=== PATIENT | female | born 1985 | race Hispanic/Latino ===

== ENCOUNTER 2021-10-22 13:00 | Observation (INO) | payer BC ==
[~2021-10-22] VITALS: Ht 162.6 cm; Wt 63.2 kg
[2021-10-26 10:10] LABS: BASOPHILS % (AUTO) 0.4 % (0.0-5.0); EOSINOPHILS % (AUTO) 0.4 % (0.0-8.0); HEMATOCRIT 43.2 % (36-48); LYMPHOCYTES % (AUTO) 18.3 % (21.0-51.0); MEAN CORPUSCULAR HEMOGLOBIN 31.1 pg (27.0-33.0); MEAN CORPUSCULAR HGB CONC 33.3 g/dL (32.0-36.0); MEAN CORPUSCULAR VOLUME 93.3 fL (79-99); MONOCYTES % (AUTO) 4.5 % (3.0-13.0); NEUTROPHILS % (AUTO) 75.9 % (40.0-77.0); PLATELET COUNT (AUTO) 181 K/uL (130-400); RED BLOOD CELL COUNT(AUTO) 4.63 MIL/uL (4.00-5.50); RED CELL DISTRIBUTION WIDTH 12.3 % (11.0-15.5); WHITE BLOOD COUNT (AUTO) 8.2 K/uL (4.8-10.8)
[2021-10-26] MEDS ORDERED: CEFAZOLIN SODIUM 1 GM VIAL IVP SCH (12:00)
[2021-10-26] MEDS ORDERED: GABA-529 PO (14:18)
[2021-10-26] MEDS ORDERED: GABA300C PO (14:18)
[2021-10-26] MEDS ORDERED: MEDR150V IM (14:19)
[2021-10-28] VITALS (21 sets, daily range): BP systolic 106–159; BP diastolic 53–83
[2021-10-28] MEDS ORDERED: SUCCINYLCHOLINE CHLORIDE 20 MG/ML 10 ML VIAL ONE (09:46)
[2021-10-28] MEDS ORDERED: LIDOCAINE PF 100MG/5ML (2%) SYRINGE 5ML ONE (09:46)
[2021-10-28] MEDS ORDERED: DEXAMETHASONE SOD PHOSPHATE 10MG/ML 1ML VIAL ONE (09:46)
[2021-10-28] MEDS ORDERED: ONDANSETRON 4MG INJ ONE (09:46)
[2021-10-28] MEDS ORDERED: MIDAZOLAM HCL 1 MG/ML 2ML VIAL ONE (09:46)
[2021-10-28] MEDS ORDERED: GLYCOPYRROLATE 1 MG/5 ML SYRINGE ONE (09:47)
[2021-10-28] MEDS ORDERED: PROPOFOL 10 MG/ML 20ML VIAL IV ONE (09:47)
[2021-10-28] MEDS ORDERED: NEOSTIGMINE 5MG/5ML SYR IV ONE (09:47)
[2021-10-28] MEDS ORDERED: ROCURONIUM 10MG/1ML SYR 10 MG/ML ML ONE (09:47)
[2021-10-28] MEDS ORDERED: FENTANYL CITRATE PF 50 MCG/1 ML 2ML VIAL ONE ×3 (09:53→11:32)
[2021-10-28] MEDS ORDERED: VASOPRESSIN 20 UNITS/ML 1ML VIAL ONE (11:33)
[2021-10-28] MEDS: LACTATED RINGERS 1000ML 1,000 ML IV ONE ×2 (11:43→12:32)
[2021-10-28] MEDS ORDERED: MEPERIDINE-PF 25 MG/ML SYG ONE ×2 (11:45→13:07)
[2021-10-28] MEDS ORDERED: ESTROGENS,CONJUGATED 0.625 MG/GM 42.5 GM VAG CRM VG ONE (12:19)
[2021-10-28] MEDS ORDERED: MEPERIDINE-PF 75 MG/ML SYG IM PRN (13:00)
[2021-10-28] MEDS ORDERED: PROMETHAZINE HCL 25 MG/ML 1ML AMPULE IM PRN ×2 (13:00)
[2021-10-28] MEDS ORDERED: SIMETHICONE 80 MG TAB.CHEW PO PRN (13:00)
[2021-10-28] MEDS ORDERED: BISACODYL 10 MG SUPP.RECT RC PRN (13:00)
[2021-10-28] MEDS: ACETAMINOPHEN WITH CODEINE 1 TAB TAB PO PRN ×2 (13:57→21:04)
[2021-10-28] MEDS: DEXTROSE 5 %-0.45 % NACL 1,000 ML IV PRN ×2 (13:57→21:04)
[2021-10-28] MEDS: DOCUSATE SODIUM 100 MG CAP PO PRN (21:03)
[2021-10-29 03:42] VITALS: BP 102/53
[2021-10-29] MEDS: DEXTROSE 5 %-0.45 % NACL 1,000 ML IV PRN (05:18)
[2021-10-29] MEDS: IBUPROFEN 600 MG TABLET PO PRN ×2 (05:18→11:13)
[2021-10-29 06:50] LABS: HEMATOCRIT 37.4 % (36-48); MEAN CORPUSCULAR HGB CONC 34.2 g/dL (32.0-36.0); MEAN CORPUSCULAR VOLUME 90.6 fL (79-99); RED BLOOD CELL COUNT(AUTO) 4.13 MIL/uL (4.00-5.50); RED CELL DISTRIBUTION WIDTH 11.9 % (11.0-15.5); WHITE BLOOD COUNT (AUTO) 16.4 K/uL (4.8-10.8)
[2021-10-29 07:17] VITALS: BP 112/70
[2021-10-29] MEDS: DOCUSATE SODIUM 100 MG CAP PO PRN (08:37)
[2021-10-29] MEDS ORDERED: SIMETHICONE 80 MG TAB.CHEW PO PRN (09:00)
[2021-10-29 11:05] VITALS: BP 101/58
[2021-10-29] MEDS ORDERED: ACET1TAB25 PO (11:54)
== END 2021-10-29 13:15 | disposition home or self-care (01) ==
LOC: EDSTATUS 10-26 08:00 → DAHIP 10-28 06:51 → WSH 10-28 13:45
PROVIDERS: ADMIT Specialist; ATTEND Specialist
DX: N81.89 Other female genital prolapse (principal); Z20.822 Contact with and (suspected) exposure to COVID-19
CPT/HCPCS: 36415 ×2; 58260; 84702; 85025; 85027; 86850; 86900; 86901; 87635; 96372; A4215; A4216; A4221; A4222; A4223 ×2; A4344; A4351; A4600; A4657; A4663; A6260; G0378 ×27; G0379 ×2; J0330; J0690; J1100; J2001; J2175 ×3; J2250; J2405; J2550 ×2; J2704; J2710; J3010 ×3; J3490 ×2; J7120; L0625